=== PATIENT | female | born 1980 | race Two or more races ===

== ENCOUNTER 2017-08-25 02:53 | Emergency (ER) | payer OTHER ==
[~2017-08-25] VITALS: Ht 165.1 cm; Wt 61.8 kg
[2017-08-25 02:54] VITALS: BP 119/88
== END 2017-08-25 04:16 | disposition home or self-care (01) ==
LOC: ED 03:41
DX: S69.80XA Other specified injuries of unspecified wrist, hand and finger(s), initial encounter (principal)
CPT/HCPCS: 99281

== ENCOUNTER 2018-07-06 17:32 | Emergency (ER) | payer MEDICAID ==
[~2018-07-06] VITALS: Ht 167.6 cm; Wt 82.3 kg
[2018-07-06] MEDS ORDERED: ACETAMINOPHEN 500 MG TABLET ONE (17:50)
--- NOTE | 2018-07-06 17:55 | NUR ---
PT REPORTS HAVING THE FLU. STATED THAT SHE HAS HAD CLARKE, COUGH, FEELING CLAMMY AND FEVER THAT STARTED TODAY. PT IS MOANING IN BED AND ASKING FOR THE LIGHT TO BE TURNED OFF. PT IS ALERT, ORIENTED, WITH NAD. PT IS CONNECTED TO THE MONITOR. CALL LIGHT WITHIN REACH.
[2018-07-06] MEDS ORDERED: ACETAMINOPHEN 500 MG TABLET PO ONE (18:00)
[2018-07-06 18:12] LABS: RAPID INFLUENZA A Negative (Negative); RAPID INFLUENZA B Negative (Negative)
[2018-07-06] MEDS ORDERED: KETOROLAC 30 MG/1 ML IM ONE (18:30)
[2018-07-06] MEDS ORDERED: GUAIFENESIN/COD200MG-20MG/10ML LIQUID PO ONE (18:30)
--- NOTE | 2018-07-06 18:59 | NUR ---
Report given to Stormy NEW.
[2018-07-06] MEDS ORDERED: KETOROLAC 30 MG/1 ML ONE (19:02)
--- NOTE | 2018-07-06 19:06 | NUR ---
REPORT RECIEVED FROM SHAQ AL. PT MEDICATED PER MAR. ON ALL MONITORS, DENIES FURTHER NEEDS AT THSI TIME, CALL LIGHT WITHIN REACH.
[2018-07-06 19:07] VITALS: BP 96/52
== END 2018-07-06 19:18 | disposition home or self-care (01) ==
LOC: ED 18:30
DX: B34.9 Viral infection, unspecified (principal); J20.8 Acute bronchitis due to other specified organisms; R50.9 Fever, unspecified; Z88.0 Allergy status to penicillin
CPT/HCPCS: 71045; 87400; 93005; 96372; 99284; J1885

== ENCOUNTER 2019-11-16 02:17 | Emergency (ER) | payer SELFPAY ==
[~2019-11-16] VITALS: Ht 167.6 cm; Wt 78.3 kg
[2019-11-16 02:21] VITALS: BP 146/94
--- NOTE | 2019-11-16 02:53 | NUR ---
PT PROVIDED WITH ICE, PT APPLIED ICE TO AFFECTED AREA.
--- NOTE | 2019-11-16 03:30 | NUR ---
Patient/Caregiver given discharge instructions and they have confirmed that they understand the instructions. Patient ambulatory with steady gait.
== END 2019-11-16 03:41 | disposition home or self-care (01) ==
LOC: ED 03:33
DX: S70.11XA Contusion of right thigh, initial encounter (principal); F17.210 Nicotine dependence, cigarettes, uncomplicated; Z72.9 Problem related to lifestyle, unspecified; W01.0XXA Fall on same level from slipping, tripping and stumbling without subsequent striking against object, initial encounter; Y93.89 Activity, other specified; Y92.098 Other place in other non-institutional residence as the place of occurrence of the external cause; Y99.8 Other external cause status
CPT/HCPCS: 99282

== ENCOUNTER 2020-01-28 15:11 | Emergency (ER) | payer SELFPAY ==
[~2020-01-28] VITALS: Ht 167.6 cm; Wt 74.0 kg
[2020-01-28 15:25] VITALS: BP 143/86
--- NOTE | 2020-01-28 15:31 | NUR ---
PT BIB [employer] ON A LEGAL HOLD. WAS AT THE [facility] THIS MORNING AND SAID SHE HAD A DESIRE TO CUT HER WRIST WITH [employer]. SHE ACCUSED THE PEOPLE AT [facility] FOR STEALING HER MEDS. SHE ACCUSED THE STAFF OF STEALING THEM AND FILMING HER ON [employer]. PT WAS RECENTLY RELEASED FROM [employer] 4 DAYS AGO. PT KEDARSUGAR HAS STATED SHE WISHES TO BE AND WANTS TO SLIT HER WRISTS OR SHOOT HERSELF. PT IS CONNECTED TO MONITORING EQUIPMENT. EKG COMPLETE. THERE IS A 1-1 SITTER WITH PATIENT. PT BELONGINGS ARE IN A PT BAG AND PLACED IN SECURITY LOCKER. PT ATTEMPTED TO SPIT ON PROVIDER AND SHOVED HER
--- NOTE | 2020-01-28 15:37 | NUR ---
[facility] called and will send someone over bhaskar to take a report.
== END 2020-01-28 16:23 | disposition home or self-care (01) ==
LOC: ED 16:15
DX: F32.9 Major depressive disorder, single episode, unspecified (principal); R00.0 Tachycardia, unspecified; R94.31 Abnormal electrocardiogram [ECG] [EKG]; F17.200 Nicotine dependence, unspecified, uncomplicated
CPT/HCPCS: 93005; 99283

== ENCOUNTER 2021-03-04 04:45 | Inpatient (IN) | payer MEDICAID ==
[~2021-03-04] VITALS: Ht 167.6 cm; Wt 65.7 kg
[2021-03-04] MEDS ORDERED: POLYETHYLENE GLYCOL 17 GM PACKET PO PRN (05:00)
[2021-03-04] MEDS ORDERED: DOCUSATE 100 MG CAPSULE PO PRN (05:00)
[2021-03-04] MEDS ORDERED: DIPHENHYDRAMINE 50 MG/ML, 1ML IM PRN (05:00)
[2021-03-04] MEDS ORDERED: HALOPERIDOL 5 MG/ML IM PRN (05:00)
[2021-03-04] MEDS ORDERED: BISACODYL 10 MG SUPP PR PRN (05:00)
[2021-03-04] MEDS ORDERED: LORazepam 2 MG/ML, 1ML IM PRN (05:00)
[2021-03-04] MEDS ORDERED: ONDANSETRON ODT 4 MG PO PRN (05:00)
[2021-03-04 10:00] VITALS: BP 116/70
[2021-03-04] MEDS ORDERED: PLEASE ENTER HEIGHT AND WEIGHT MC SCH (10:00)
[2021-03-04 11:01] LABS: ANION GAP 4 mmol/L (5-15); CALCIUM 8.1 mg/dL (8.5-10.1); CHLORIDE 104 mmol/L (98-107); CREATININE 0.46 mg/dL (0.55-1.02)
[2021-03-04 11:26] LABS: FREE T4 (FREE THYROXINE) 1.22 ng/dL (0.76-1.46)
[2021-03-04 11:55] LABS: BASOPHILS % (AUTO) 0 % (0-1); EOSINOPHILS % (AUTO) 3 % (1-7); LYMPHOCYTES % (AUTO) 15 % (22-44); MEAN CORPUSCULAR HEMOGLOBIN 30.5 pg (27.0-34.8); MEAN PLATELET VOLUME 7.8 fL (7.4-10.4); MONOCYTES % (AUTO) 7 % (2-9); NEUTROPHILS % (AUTO) 75 % (42-75); PLATELET COUNT 333 x10^3/uL (130-400); RED BLOOD COUNT 4.11 x10^6/uL (3.82-5.3); RED CELL DISTRIBUTION WIDTH 14.3 % (9.6-15.2)
[2021-03-04 17:46] LABS: MICROSCOPIC INDICATED
[2021-03-04 19:31] VITALS: BP 121/73
[2021-03-04] MEDS: RISPERIDONE 1 MG TABLET PO SCH (20:58)
[2021-03-04] MEDS: CARBAMAZEPINE 200 MG TABLET PO SCH (20:58)
[2021-03-04] MEDS: GABAPENTIN 300 MG CAPSULE PO SCH (20:58)
[2021-03-05 08:00] LABS: CHOL/HDL RATIO 1.9; LDL/HDL RATIO 0.7 (0.5-3.0)
[2021-03-05 08:01] VITALS: BP 113/75
[2021-03-05] MEDS: RISPERIDONE 1 MG TABLET PO SCH ×2 (08:42→20:53)
[2021-03-05] MEDS: CARBAMAZEPINE 200 MG TABLET PO SCH ×2 (08:42→20:53)
[2021-03-05] MEDS: GABAPENTIN 300 MG CAPSULE PO SCH ×3 (08:42→20:54)
[2021-03-05] MEDS ORDERED: POTASSIUM CHLORIDE 20 MEQ TAB.ER.PRT PO ONE (09:00)
[2021-03-05 18:58] VITALS: BP 97/66
[2021-03-06 07:21] VITALS: BP 108/68
[2021-03-06] MEDS: CIPROFLOXACIN 500 MG TABLET PO SCH ×2 (08:44→20:18)
[2021-03-06] MEDS: ACETAMINOPHEN 325 MG TABLET PO PRN (08:44)
[2021-03-06] MEDS: GABAPENTIN 300 MG CAPSULE PO SCH (08:44)
[2021-03-06] MEDS: HALOPERIDOL 5 MG TABLET PO PRN ×2 (08:44→18:18)
[2021-03-06] MEDS: CARBAMAZEPINE 200 MG TABLET PO SCH ×2 (08:44→20:18)
[2021-03-06] MEDS: RISPERIDONE 1 MG TABLET PO SCH (08:54)
[2021-03-06] MEDS ORDERED: QUETIAPINE 25MG TABLET PO PRN (16:30)
[2021-03-06] MEDS ORDERED: NICOTINE 14MG/24 HR PATCH.TD24 TD SCH (17:00)
[2021-03-06] MEDS: DIPHENHYDRAMINE 50 MG CAPSULE PO PRN (18:18)
[2021-03-06] MEDS: QUETIAPINE 100MG TABLET PO SCH (20:18)
[2021-03-07] MEDS: CIPROFLOXACIN 500 MG TABLET PO SCH ×2 (08:32→20:13)
[2021-03-07] MEDS: CARBAMAZEPINE 200 MG TABLET PO SCH ×2 (08:32→20:13)
[2021-03-07] MEDS: NICOTINE 14MG/24 HR PATCH.TD24 TD SCH (08:33)
[2021-03-07 08:55] VITALS: BP 108/70
[2021-03-07] MEDS: DIPHENHYDRAMINE 50 MG CAPSULE PO PRN (16:00)
[2021-03-07] MEDS: HALOPERIDOL 5 MG TABLET PO PRN (16:00)
[2021-03-07] MEDS: ACETAMINOPHEN 325 MG TABLET PO PRN ×2 (16:10→20:16)
[2021-03-07] MEDS: QUETIAPINE 100MG TABLET PO SCH (20:13)
[2021-03-08 07:25] VITALS: BP 108/72
[2021-03-08] MEDS: NICOTINE 14MG/24 HR PATCH.TD24 TD SCH ×2 (09:00→09:08)
[2021-03-08] MEDS: CIPROFLOXACIN 500 MG TABLET PO SCH ×2 (09:09→20:01)
[2021-03-08] MEDS: CARBAMAZEPINE 200 MG TABLET PO SCH ×2 (09:09→20:01)
[2021-03-08] MEDS: ACETAMINOPHEN 325 MG TABLET PO PRN ×2 (09:26→16:21)
[2021-03-08 19:26] VITALS: BP 113/73
[2021-03-08] MEDS: QUETIAPINE 100MG TABLET PO SCH (20:01)
[2021-03-09] MEDS: ACETAMINOPHEN 325 MG TABLET PO PRN ×3 (05:48→20:06)
[2021-03-09 07:39] VITALS: BP 102/68
[2021-03-09] MEDS: CIPROFLOXACIN 500 MG TABLET PO SCH ×2 (09:32→20:06)
[2021-03-09] MEDS: CARBAMAZEPINE 200 MG TABLET PO SCH ×2 (09:32→20:06)
[2021-03-09] MEDS: NICOTINE 14MG/24 HR PATCH.TD24 TD SCH (09:34)
[2021-03-09] MEDS ORDERED: IBUPROFEN 200 MG TABLET PO PRN (13:00)
[2021-03-09] MEDS ORDERED: HYDROXYZINE PAMOATE 25MG CAP ONE (15:53)
[2021-03-09] MEDS: HYDROXYZINE PAMOATE 50MG CAP PO PRN (16:02)
[2021-03-09 19:43] VITALS: BP 94/60
[2021-03-09] MEDS: QUETIAPINE 100MG TABLET PO SCH (20:06)
[2021-03-10 07:40] VITALS: BP 134/78
[2021-03-10] MEDS: NICOTINE 14MG/24 HR PATCH.TD24 TD SCH (08:56)
[2021-03-10] MEDS: CARBAMAZEPINE 200 MG TABLET PO SCH (08:57)
[2021-03-10] MEDS: HYDROXYZINE PAMOATE 50MG CAP PO PRN (08:58)
[2021-03-10] MEDS: CIPROFLOXACIN 500 MG TABLET PO SCH (08:58)
[2021-03-10] MEDS ORDERED: QUET100T2 PO (14:35)
[2021-03-10] MEDS ORDERED: CARB200T4 PO (14:35)
[2021-03-10] MEDS ORDERED: NICO-486 TD (14:35)
== END 2021-03-10 15:40 | disposition home or self-care (01) | DRG 885 ==
LOC: 3E 09:24
PROVIDERS: ADMIT Psychiatry & Neurology Psychosomatic Medicine; ATTEND Psychiatry & Neurology Psychosomatic Medicine
DX: F25.1 Schizoaffective disorder, depressive type (principal); F11.20 Opioid dependence, uncomplicated; F15.20 Other stimulant dependence, uncomplicated; R45.851 Suicidal ideations; F12.10 Cannabis abuse, uncomplicated; F17.210 Nicotine dependence, cigarettes, uncomplicated; F41.9 Anxiety disorder, unspecified; Z79.899 Other long term (current) drug therapy; Z88.0 Allergy status to penicillin
CPT/HCPCS: 36415; 71045; 80048; 80061; 81001; 82607; 84439; 84443; 85025; 87077; 87086